=== PATIENT | female | born 1980 | race Caucasian/White ===

== ENCOUNTER → 2025-04-26 11:32 | Outpatient (REF) | payer OTHER, SELFPAY | LOC: PNTC 11:32 | PROVIDERS: ATTENDING PHYSICIAN Advanced Practice Midwife | DX: Z36.0 Encounter for antenatal screening for chromosomal anomalies (principal); Z36.82 Encounter for antenatal screening for nuchal translucency | CPT/HCPCS: 76801; 76813 ==

== ENCOUNTER → 2025-05-17 07:58 | Outpatient (REF) | payer OTHER, SELFPAY | LOC: PNTC 07:58 | PROVIDERS: ATTENDING PHYSICIAN Advanced Practice Midwife | DX: O09.522 Supervision of elderly multigravida, second trimester (principal); O09.812 Supervision of pregnancy resulting from assisted reproductive technology, second trimester; O34.211 Maternal care for low transverse scar from previous cesarean delivery | CPT/HCPCS: 76805; 93976 ==

== ENCOUNTER → 2025-06-14 08:05 | Outpatient (REF) | payer OTHER, SELFPAY | LOC: PNTC 08:05 | PROVIDERS: ATTENDING PHYSICIAN Advanced Practice Midwife | DX: Z36.3 Encounter for antenatal screening for malformations (principal); Z36.86 Encounter for antenatal screening for cervical length; O09.522 Supervision of elderly multigravida, second trimester; O09.812 Supervision of pregnancy resulting from assisted reproductive technology, second trimester; O34.211 Maternal care for low transverse scar from previous cesarean delivery | CPT/HCPCS: 76811; 76817 ==

== ENCOUNTER → 2025-07-08 08:42 | Outpatient (REF) | payer OTHER, SELFPAY | LOC: PNTC 08:42 | PROVIDERS: ATTENDING PHYSICIAN Student in an Organized Health Care Education/Training Program | DX: O09.523 Supervision of elderly multigravida, third trimester (principal); O09.813 Supervision of pregnancy resulting from assisted reproductive technology, third trimester | CPT/HCPCS: 76816 ==

== ENCOUNTER → 2025-08-05 08:19 | Outpatient (REF) | payer OTHER, SELFPAY | LOC: PNTC 08:19 | PROVIDERS: ATTENDING PHYSICIAN Advanced Practice Midwife | DX: Z31.83 Encounter for assisted reproductive fertility procedure cycle (principal); N97.9 Female infertility, unspecified; O09.893 Supervision of other high risk pregnancies, third trimester; O09.813 Supervision of pregnancy resulting from assisted reproductive technology, third trimester | CPT/HCPCS: 76816 ==